=== PATIENT | female | born 1925 | race Two or more races ===

== ENCOUNTER 2016-06-03 09:17 | Inpatient (IN) | payer MEDICAID, OTHER ==
[~2016-06-03] VITALS: Ht 165.1 cm; Wt 49.8 kg
[~2016-06-03 09:17] MED LIST: BUSP10TA90 PO; DONE5TAB28 PO; FURO40TA4 PO; GLIP2.5T24 PO; INSUINJ37 SC; INSUINJ48 SC; LOSA100T26 PO; METO25TA5 PO; PAR20T PO; POTA-167 PO; SIMV-8 PO
[2016-06-03 11:07] LABS: Basophils # (auto) 0 uL; Basophils % (auto) 0.4 % (0.0-2.0); Eosinophils # (auto) 0.3 uL; Eosinophils % (auto) 2.7 % (0.0-7.0); Hematocrit 47.3 % (36.0-46.0); Hemoglobin 15.3 g/dL (12.2-16.2); Lymphocytes # (auto) 2.9 uL; Lymphocytes % (auto) 25.8 % (10.0-50.0); Mean Corpuscular Hemoglobin 28.1 pg (28.0-32.0); Mean Corpuscular Hgb Conc. 32.3 g/dL (32.0-36.0); Mean Corpuscular Volume 87.2 fL (80.0-100.0); Mean Platelet Volume 9.7 fL (7.4-10.4); Monocytes # (auto) 0.7 uL; Monocytes % (auto) 6.3 % (0.0-12.0); Neutrophils # (auto) 7.4 uL; Neutrophils % (auto) 64.8 % (37.0-80.0); Platelet Count (auto) 257 10^3/uL (140-450); Red Cell Distribution Width 14.9 % (11.6-16.0); White Blood Cell 11.4 10^3/uL (4.4-10.8)
[2016-06-03 11:22] LABS: INR 1.04 (0.9-1.15); Partial Thromboplastin Time 28.9 sec (22.64-33.71); Prothrombin Time 10.7 sec (9.37-12.3)
[2016-06-03 11:50] LABS: Albumin 3.3 g/dL (3.4-5.0); BUN/Creatinine Ratio 25.4; Bilirubin, Total 0.3 mg/dL (0.2-1.0); Calcium 9.6 mg/dL (8.5-10.1); Magnesium 2.1 mg/dL (1.6-2.6); Potassium 3.9 mmol/L (3.5-5.1); Total Protein 7.4 g/dL (6.4-8.2)
[2016-06-03] MEDS: SODIUM CHLORIDE 0.9% 1,000 ML IV SCH ×2 (12:50→23:06)
[2016-06-03] MEDS ORDERED: PROMETHAZINE HCL 25 MG/ML 1ML IV PRN (13:00)
[2016-06-03] MEDS ORDERED: DEXTROSE (50%) 50ML SYRG IV PRN (13:00)
[2016-06-03] MEDS ORDERED: MORPHINE SULF INJ 2 MG/ML SYRINGE 1ML IV PRN (13:00)
[2016-06-03] MEDS ORDERED: LORazepam 0.5 MG TAB PO PRN (13:00)
[2016-06-03] MEDS ORDERED: ACETAMINOPHEN 500 MG TAB PO PRN (13:00)
[2016-06-03] MEDS ORDERED: HYDROcodone-ACET 5/325MG TAB PO PRN (13:00)
[2016-06-03] MEDS ORDERED: TEMAZEPAM 15 MG CAP PO PRN (13:00)
[2016-06-03] MEDS ORDERED: INSULIN DETEMIR(LEVEMIR) 1unit/0.01ml Soln (100units/ml) SC ONE (13:30)
[2016-06-03] MEDS ORDERED: ENOXAPARIN SOD 30 MG/0.3 ML SYRINGE SC ONE (13:30)
[2016-06-03] MEDS ORDERED: busPIRone HCL 10 MG TAB PO ONE (13:30)
[2016-06-03] MEDS ORDERED: METOPROLOL TARTRATE 25 MG TAB PO ONE (13:30)
[2016-06-03] MEDS ORDERED: DONEPEZIL HYDROCHLORIDE 5 MG TAB PO ONE (13:30)
[2016-06-03] MEDS ORDERED: PANTOPRAZOLE 40 MG TAB PO ONE (13:30)
[2016-06-03 13:43] LABS: Amylase 54 U/L (25-115)
[2016-06-03 15:45] VITALS: BP 117/57
[2016-06-03 15:53] VITALS: BP 117/57
[2016-06-03 17:00] VITALS: BP 131/71
[2016-06-03] MEDS: ACCU-CHEK COMFORT CURVE STRIP VI SCH ×2 (18:00→23:35)
[2016-06-03] MEDS: InsuLIN REG 1unit/0.01ml Soln (100units/ml) SC SCH ×2 (18:00→23:35)
[2016-06-03 22:00] VITALS: BP 160/65
[2016-06-03] MEDS ORDERED: PATIENTS OWN MEDICATION (Simvastatin 20 MG) PO SCH ×2 (22:00)
[2016-06-03] MEDS: INSULIN DETEMIR(LEVEMIR) 1unit/0.01ml Soln (100units/ml) SC SCH (22:00)
[2016-06-03] MEDS ORDERED: ATORVASTATIN 20 MG TAB PO SCH (22:00)
[2016-06-03] MEDS ORDERED: FAMOTIDINE 20 MG TAB PO SCH (22:00)
[2016-06-03] MEDS: busPIRone HCL 10 MG TAB PO SCH (22:06)
[2016-06-03] MEDS: METOPROLOL TARTRATE 25 MG TAB PO SCH (22:07)
[2016-06-04] MEDS: ACCU-CHEK COMFORT CURVE STRIP VI SCH ×2 (05:33→12:00)
[2016-06-04] MEDS: InsuLIN REG 1unit/0.01ml Soln (100units/ml) SC SCH (05:33)
[2016-06-04 05:49] VITALS: BP 143/65
[2016-06-04 06:43] LABS: Basophils # (auto) 0 uL; Basophils % (auto) 0.4 % (0.0-2.0); Eosinophils # (auto) 0.4 uL; Eosinophils % (auto) 3.2 % (0.0-7.0); Hematocrit 44.3 % (36.0-46.0); Hemoglobin 13.9 g/dL (12.2-16.2); Lymphocytes # (auto) 2.7 uL; Lymphocytes % (auto) 24.1 % (10.0-50.0); Mean Corpuscular Hemoglobin 27.8 pg (28.0-32.0); Mean Corpuscular Hgb Conc. 31.4 g/dL (32.0-36.0); Mean Corpuscular Volume 88.6 fL (80.0-100.0); Mean Platelet Volume 9.7 fL (7.4-10.4); Monocytes # (auto) 0.9 uL; Neutrophils # (auto) 7.3 uL; Neutrophils % (auto) 64.3 % (37.0-80.0); Platelet Count (auto) 232 10^3/uL (140-450); Red Cell Distribution Width 15.2 % (11.6-16.0); White Blood Cell 11.3 10^3/uL (4.4-10.8)
[2016-06-04 07:24] LABS: Albumin 2.7 g/dL (3.4-5.0); BUN/Creatinine Ratio 31.3; Bilirubin, Total 0.4 mg/dL (0.2-1.0); Calcium 8.7 mg/dL (8.5-10.1); Potassium 3.8 mmol/L (3.5-5.1); Total Protein 6.3 g/dL (6.4-8.2)
[2016-06-04 08:01] LABS: Urine Bilirubin Negative (Negative); Urine Blood Negative /uL (Negative); Urine Color Yellow (Yellow); Urine Glucose Normal (Normal); Urine Hyaline Cast FEW /lpf (0 - 2); Urine Ketone Negative (Negative); Urine Mucus FEW (None Seen); Urine Nitrite Negative (Negative); Urine RBC 1 /hpf (0 - 4); Urine Squamous Epithelial Cell MOD /hpf (<5); Urine Urobilinogen Normal (Negative); Urine pH 5.5 (5.0-8.0)
[2016-06-04] MEDS: SODIUM CHLORIDE 0.9% 1,000 ML IV SCH (08:50)
[2016-06-04 09:35] VITALS: BP 141/65
[2016-06-04] MEDS: busPIRone HCL 10 MG TAB PO SCH (09:56)
[2016-06-04] MEDS: METOPROLOL TARTRATE 25 MG TAB PO SCH (09:56)
[2016-06-04] MEDS ORDERED: ENOXAPARIN SOD 40 MG/0.4 ML SYRINGE SC SCH (10:00)
[2016-06-04] MEDS ORDERED: [UNRECOGNIZED DRUG - OTHER] PO SCH (10:00)
[2016-06-04] MEDS ORDERED: PARoxetine 20 MG TAB PO SCH (10:00)
[2016-06-04] MEDS ORDERED: PATIENTS OWN MEDICATION (Losartan Potassium & Hydrochlo (Losartan Potassium/Hydroc) 1 TAB) PO SCH ×2 (10:00)
[2016-06-04] MEDS ORDERED: POTASSIUM CHL 10 Meq TABLET PO SCH (10:00)
[2016-06-04] MEDS ORDERED: PANTOPRAZOLE 40 MG TAB PO SCH (10:00)
[2016-06-04] MEDS ORDERED: DONEPEZIL HYDROCHLORIDE 5 MG TAB PO SCH (10:00)
[2016-06-04] MEDS ORDERED: FUROSEMIDE 40 MG TAB PO SCH (10:00)
[2016-06-04] MEDS ORDERED: ENOXAPARIN SOD 30 MG/0.3 ML SYRINGE SC SCH (10:00)
[2016-06-04] MEDS: INSULIN DETEMIR(LEVEMIR) 1unit/0.01ml Soln (100units/ml) SC SCH (10:01)
[2016-06-04 13:00] VITALS: BP 106/59
[2016-06-04 16:46] VITALS: BP 119/62
[2016-06-04 16:51] VITALS: BP 106/59
== END 2016-06-04 17:07 | disposition hospice, home (50) | DRG 689 ==
LOC: ER 09:17 → EDUNIT# 09:17 → TELE 09:18 → TELE-CENTR 14:47 → CENTRAL 15:28
PROVIDERS: ADMIT Internal Medicine; ATTEND Internal Medicine
DX: N39.0 Urinary tract infection, site not specified (principal); E43 Unspecified severe protein-calorie malnutrition; Z68.1 Body mass index [BMI] 19.9 or less, adult; I25.10 Atherosclerotic heart disease of native coronary artery without angina pectoris; R10.9 Unspecified abdominal pain; F32.9 Major depressive disorder, single episode, unspecified; F41.9 Anxiety disorder, unspecified; E11.65 Type 2 diabetes mellitus with hyperglycemia; F02.80 Dementia in other diseases classified elsewhere, unspecified severity, without behavioral disturbance, psychotic disturbance, mood disturbance, and anxiety; G30.9 Alzheimer's disease, unspecified; Z51.5 Encounter for palliative care; E78.5 Hyperlipidemia, unspecified; I50.9 Heart failure, unspecified; K42.9 Umbilical hernia without obstruction or gangrene; I13.10 Hypertensive heart and chronic kidney disease without heart failure, with stage 1 through stage 4 chronic kidney disease, or unspecified chronic kidney disease; I11.0 Hypertensive heart disease with heart failure; K80.20 Calculus of gallbladder without cholecystitis without obstruction; M19.90 Unspecified osteoarthritis, unspecified site; Z83.3 Family history of diabetes mellitus; Z85.42 Personal history of malignant neoplasm of other parts of uterus; Z87.891 Personal history of nicotine dependence; I25.2 Old myocardial infarction; Z82.49 Family history of ischemic heart disease and other diseases of the circulatory system; Z79.4 Long term (current) use of insulin; Z79.899 Other long term (current) drug therapy; Z88.0 Allergy status to penicillin; Z88.1 Allergy status to other antibiotic agents; Z90.710 Acquired absence of both cervix and uterus; N18.9 Chronic kidney disease, unspecified
CPT/HCPCS: 36415; 71010; 74176; 80053; 81001; 82150; 82962; 83036; 83690; 83735; 85025; 85610; 85730; 87086; 93005; 94761; 96372; J1815

== ENCOUNTER 2016-09-21 07:57 | Emergency (ER) | payer OTHER ==
[~2016-09-21] VITALS: Ht 177.8 cm; Wt 104.3 kg
[2016-09-21 09:13] LABS: Basophils # (auto) 0.1 uL; Basophils % (auto) 0.7 % (0.0-2.0); Eosinophils # (auto) 0.2 uL; Hematocrit 44.8 % (36.0-46.0); Hemoglobin 14.6 g/dL (12.2-16.2); Lymphocytes # (auto) 2.4 uL; Lymphocytes % (auto) 22.5 % (10.0-50.0); Mean Corpuscular Hemoglobin 28.9 pg (28.0-32.0); Mean Corpuscular Hgb Conc. 32.6 g/dL (32.0-36.0); Mean Corpuscular Volume 88.7 fL (80.0-100.0); Mean Platelet Volume 8.8 fL (7.4-10.4); Monocytes # (auto) 0.6 uL; Monocytes % (auto) 5.7 % (0.0-12.0); Neutrophils # (auto) 7.5 uL; Neutrophils % (auto) 69.1 % (37.0-80.0); Platelet Count (auto) 285 10^3/uL (140-450); Red Cell Distribution Width 14.9 % (11.6-16.0); White Blood Cell 10.9 10^3/uL (4.4-10.8)
[2016-09-21 09:35] LABS: Alkaline Phosphatase 81 U/L (45-117); Anion Gap 10 (5-15); Aspartate Aminotransferase 24 U/L (15-37); BUN/Creatinine Ratio 18.5; Bilirubin, Total 0.4 mg/dL (0.2-1.0); Blood Urea Nitrogen 17 mg/dL (7-18); Calcium 9.1 mg/dL (8.5-10.1); Carbon Dioxide 28 mmol/L (21-32); Chloride 101 mmol/L (98-107); GFR African American 74 mL/min; GFR Non-African American 61 mL/min; Glucose 217 mg/dL (74-106); Magnesium 2.1 mg/dL (1.6-2.6); Potassium 4.3 mmol/L (3.5-5.1); Sodium 139 mmol/L (136-145); Total Protein 7.5 g/dL (6.4-8.2)
[2016-09-21 11:25] VITALS: BP 129/73
== END 2016-09-21 20:11 | disposition home or self-care (01) ==
LOC: ER 07:57 → EDUNIT# 07:57 → ER 20:11
CPT/HCPCS: 36415; 70450; 71010; 80053; 83605; 83735; 84484; 85025; 87040; 87076; 93005; 94761

== ENCOUNTER 2017-02-03 14:47 | Emergency (ER) | payer OTHER, MEDICAID ==
[~2017-02-03] VITALS: Ht 154.9 cm; Wt 90.7 kg
[2017-02-03 15:45] LABS: Basophils # (auto) 0 uL; Basophils % (auto) 0.3 % (0.0-2.0); CONDITION Y; Eosinophils # (auto) 0.2 uL; Eosinophils % (auto) 1.3 % (0.0-7.0); Hematocrit 41.9 % (36.0-46.0); Lymphocytes # (auto) 2.7 uL; Lymphocytes % (auto) 21.9 % (10.0-50.0); Mean Corpuscular Hemoglobin 30.1 pg (28.0-32.0); Mean Corpuscular Hgb Conc. 33.3 g/dL (32.0-36.0); Mean Corpuscular Volume 90.4 fL (80.0-100.0); Monocytes # (auto) 0.9 uL; Monocytes % (auto) 7.5 % (0.0-12.0); Neutrophils # (auto) 8.6 uL; Platelet Count (auto) 297 10^3/uL (140-450); Red Cell Distribution Width 13.9 % (11.6-16.0); White Blood Cell 12.5 10^3/uL (4.4-10.8)
[2017-02-03 15:53] LABS: Albumin 2.9 g/dL (3.4-5.0); Alkaline Phosphatase 84 U/L (45-117); Anion Gap 9 (5-15); Aspartate Aminotransferase 16 U/L (15-37); BUN/Creatinine Ratio 21.6; Bilirubin, Total 0.2 mg/dL (0.2-1.0); Blood Urea Nitrogen 22 mg/dL (7-18); Calcium 9.2 mg/dL (8.5-10.1); Carbon Dioxide 25 mmol/L (21-32); Chloride 102 mmol/L (98-107); GFR African American 66 mL/min; GFR Non-African American 54 mL/min; Glucose 149 mg/dL (74-106); Magnesium 2.2 mg/dL (1.6-2.6); Potassium 4.3 mmol/L (3.5-5.1); Sodium 136 mmol/L (136-145); Total Protein 7.1 g/dL (6.4-8.2)
[2017-02-03] MEDS ORDERED: SODIUM CHLORIDE 0.9% 1,000 ML IV ONE (16:03)
[2017-02-03 17:51] VITALS: BP 147/83
== END 2017-02-03 18:51 | disposition home or self-care (01) ==
LOC: EDBD 14:47 → EDUNIT# 14:50 → ER 14:50
DX: M19.012 Primary osteoarthritis, left shoulder (principal); M17.11 Unilateral primary osteoarthritis, right knee; R07.89 Other chest pain; E11.9 Type 2 diabetes mellitus without complications; I10 Essential (primary) hypertension; E44.0 Moderate protein-calorie malnutrition; Z68.37 Body mass index [BMI] 37.0-37.9, adult; I25.2 Old myocardial infarction; Z88.0 Allergy status to penicillin
CPT/HCPCS: 36415; 71020; 73030; 73562; 80053; 83735; 84443; 84484; 85025; 93005; 94761; 96360